=== PATIENT | male | born 1970 | race Caucasian/White ===

== ENCOUNTER → 2024-05-26 | Day surgery (SDC) | payer BC ==
[~2024-05-26] MED LIST: Gadobenate Dimeglumine 2 ML, Sodium Chloride 0.9% 250 ML 10 ML, Iopamidol 8 ML, Lidocai... FS SCH; Magnevist 469MG/ML 20 ML VIAL ONE; Sodium Bicarbonate 2.5 MEQ/5 ML SDV ONE
== END ==
LOC: RAD 12:12
PROVIDERS: ATTEND Orthopaedic Surgery
PROC: BP08YZZ Plain Radiography of Right Shoulder using Other Contrast (ICD-10-PCS; principal; 2024-05-26)
DX: M75.111 Incomplete rotator cuff tear or rupture of right shoulder, not specified as traumatic (principal)
CPT/HCPCS: 23350; 77002; A9577; A9579; J0171; J7050; Q9967